=== PATIENT | male | born 1990 | race African-American/Black ===

== ENCOUNTER 2017-02-16 07:22 | Emergency (ER) | payer OTHER | END 2017-02-16 09:24 | disposition home or self-care (01) | LOC: D.ER 07:22 | DX: S62.633A Displaced fracture of distal phalanx of left middle finger, initial encounter for closed fracture (principal); V49.9XXA Car occupant (driver) (passenger) injured in unspecified traffic accident, initial encounter; Y93.89 Activity, other specified; Y92.410 Unspecified street and highway as the place of occurrence of the external cause; F17.200 Nicotine dependence, unspecified, uncomplicated ==

== ENCOUNTER 2017-03-26 09:24 | Emergency (ER) | payer OTHER ==
[2017-03-26 10:24] LABS: BASOPHILS 0.3 % (0-2); EOSINOPHILS 0.7 % (0-7); HEMATOCRIT 41.9 % (42.0-54.0); HEMOGLOBIN 13.8 g/dL (13.5-17.5); IMMATURE GRANULOCYTES 0.1 % (0-5); LYMPHOCYTES 14.6 % (15-50); MCHC 32.9 g/dL (31.0-37.0); MEAN PLATELET VOLUME 10.4 fL (7.4-10.4); MONOCYTES 15.5 % (2-11); NEUTROPHILS 68.8 % (40-80); PLATELET COUNT 155 10x3/uL (130-400); RBC 4.93 10x6/uL (4.20-6.10); RDW 13.7 % (11.5-14.5); WBC 6.7 10x3/uL (4.8-10.8)
[2017-03-26 10:42] LABS: ALBUMIN 3.6 g/dL (3.4-5.0); ALKALINE PHOSPHATASE 37 U/L (46-116); ALT (SGPT) 22 U/L (10-68); BILIRUBIN - TOTAL 0.88 mg/dL (0.2-1.3); CALC OSMOLALITY 279 mosm/kg (275-300); CALCIUM 8.6 mg/dL (8.5-10.1); CARBON DIOXIDE 29.1 mmol/L (21.0-32.0); CHLORIDE - SERUM 103 mmol/L (98-107); CREATININE - SERUM 1.2 mg/dL (0.6-1.3); GLUCOSE 102 mg/dL (74-106); LIPASE 83 U/L (73-393); POTASSIUM - SERUM 3.8 mmol/L (3.5-5.1); PROTEIN - SERUM 7.1 g/dL (6.4-8.2); SODIUM 140 mmol/L (136-145); UREA NITROGEN 15 mg/dL (7-18); eGFR NON AFRICAN AMERICAN 79 mL/min (90-120)
== END 2017-03-26 11:30 | disposition home or self-care (01) ==
LOC: D.ER 09:24
PROVIDERS: Emergency Medicine
DX: K52.9 Noninfective gastroenteritis and colitis, unspecified (principal); F17.200 Nicotine dependence, unspecified, uncomplicated

== ENCOUNTER 2018-07-20 20:18 | Emergency (ER) | payer OTHER ==
[~2018-07-20] VITALS: Ht 188 cm; Wt 75.5 kg
[2018-07-20 20:24] VITALS: Ht 188 cm; Wt 75.5 kg
[2018-07-20] MEDS ORDERED: KLONOPIN0.5 MG PO (20:59)
== END 2018-07-20 21:26 | disposition home or self-care (01) ==
LOC: D.ER 20:18
DX: F41.9 Anxiety disorder, unspecified (principal)

== ENCOUNTER 2019-02-24 12:55 | Emergency (ER) | payer OTHER ==
[~2019-02-24] VITALS: Ht 188 cm; Wt 72.7 kg
[~2019-02-24 12:55] MED LIST: KLONOPIN0.5 MG PO
[2019-02-24 13:18] VITALS: Ht 188 cm; Wt 72.7 kg
[2019-02-24 14:59] VITALS: BP 121/70
[2019-02-24] MEDS ORDERED: TORADOL10 MG PO (16:26)
== END 2019-02-24 16:57 | disposition home or self-care (01) ==
LOC: D.ER 12:55
DX: S93.402A Sprain of unspecified ligament of left ankle, initial encounter (principal); X50.1XXA Overexertion from prolonged static or awkward postures, initial encounter